=== PATIENT | female | born 1955 | race Caucasian/White ===

== ENCOUNTER 2017-01-19 15:02 | Emergency (ER) | payer OTHER ==
[~2017-01-19] VITALS: Ht 167.6 cm; Wt 78.3 kg
[2017-01-19] MEDS ORDERED: AMLODIPINE BESYL5 MG PO (15:56)
[2017-01-19] MEDS ORDERED: PAROXETINE HCL20 MG PO (15:57)
[2017-01-19] MEDS ORDERED: ROPINIROLE HCL0.5 MG PO (15:57)
[2017-01-19] MEDS ORDERED: PANTOPRAZOLE SO40 MG PO (15:57)
[2017-01-19] MEDS ORDERED: DESYREL100 MG PO (15:57)
[2017-01-19] MEDS ORDERED: SIMVASTATIN20 MG PO (15:57)
[2017-01-19] MEDS ORDERED: LOSARTAN-HCTZ1 EAC2 PO (15:58)
[2017-01-19 17:22] VITALS: BP 152/52
== END 2017-01-19 17:37 | disposition home or self-care (01) ==
LOC: EME 15:02
DX: S06.0X0A Concussion without loss of consciousness, initial encounter (principal); M54.2 Cervicalgia; M25.519 Pain in unspecified shoulder; V49.60XA Unspecified car occupant injured in collision with unspecified motor vehicles in traffic accident, initial encounter; E78.5 Hyperlipidemia, unspecified; I10 Essential (primary) hypertension; K21.9 Gastro-esophageal reflux disease without esophagitis
CPT/HCPCS: 70450; 72125; 99281; 99284